=== PATIENT | female | born 1975 | race Caucasian/White ===

== ENCOUNTER 2016-04-16 11:46 | Emergency (ER) | payer BC ==
[~2016-04-16] VITALS: Ht 162.6 cm; Wt 73.0 kg
[~2016-04-16 11:46] MED LIST: IBUP-232 PO; IBUP800 PO; PROM25SU8 PO; Z.0.NO CURRENT MEDS
[2016-04-16 11:52] VITALS: BP 130/79; PULSE 114; RESP 14; TEMP 98.9; O2SAT 98
--- NOTE | 2016-04-16 13:10 | PD ---
HPI Chief Complaint: Injury Time Seen by Provider: 13:04 Travel History International Travel<30 days: No Contact w/Intl Traveler<30days: No Traveled to known affect area: No History of Present Illness HPI Patient is a 40-year-old female presenting with crush injury to the left great toe. This occurred approximately one hour prior to arrival. There was a 15 pound kettle Banuelos on a shelf approximately 2 to 2.5 Feet off the ground that was knocked down on the toe. She was wearing shoes. She has not been able to bear weight since. She reports swelling and paresthesias/numbness in the toe. No pain in the foot or ankle. No pain in the second through fifth toes. She is able to move the toe somewhat but is painful to do so. She denies any lacerations or bleeding. She denies current . [facility] Past Medical History Medical History: Denies Significant Hx Tetanus Vaccination: > 5 Years Influenza Vaccination: No ?: Not LMP: UTERINE ABLATION Past Surgical History Section: Yes (X's 2) Other Surgery: Yes (Tummy tuck, breast lift, cervical ablation ) Social History Alcohol Use: Yes (Rarely) Tobacco Use: Yes Substance Use: No Allergies-Medications (Allergen,Severity, Reaction): Coded Allergies: No Known Allergies (Verified , 04/16/16) Reported Meds & Prescriptions Reported Meds & Active Scripts Active No Active Prescriptions or Reported Medications Review of Systems Cardiovascular: No: Claudication Musculoskeletal: Positive: Other (see the history of present illness) Skin: No Other (no laceration) Neurologic: Positive: Paresthesia, Sensory Disturbance (numbness of the distal tip of left great toe), No: Weakness, Focal Abnormalities Physical Exam Narrative GENERAL: Well-developed and well-nourished adult female in no acute distress. SKIN: Warm and dry. Good turgor without tenting. HEAD: Normocephalic and atraumatic. CARDIOVASCULAR: Regular rate and rhythm without murmurs, rubs, clicks or gallops. Dorsalis pedis and posterior tibial pulses 2+ bilaterally. Capillary refill less than 2 seconds of all toes of left foot. No pedal edema. RESPIRATORY: Clear to auscultation bilaterally with symmetrical rise and fall, no distress or use of accessory muscles. MUSCULOSKELETAL: Edema to the left great toe distally with ecchymosis. Subungual hematoma approximately two thirds of the nail on the medial side. Was not loose or bleeding. Patient can flex and extend the left great toe. No pain upon palpation of the other digits of the foot, palpation of the metatarsal and cuboid bones or ankle on the left. Patient freely moving all four extremities spontaneously. Extremities without clubbing or cyanosis. No obvious deformities. NEUROLOGIC: CN II-XII grossly intact. Awake and alert. Strength 5/5 bilateral flexion, extension of the left great toe. Sensation intact to the distal, medial and lateral aspects of the left great toe. Normal speech. PSYCHIATRIC: Appropriate mood and affect; insight and judgment normal. Data Data Last Documented VS Vital Signs Date Time Temp Pulse Resp B/P Pulse Ox O2 Delivery O2 Flow Rate FiO2 04/16/16 11:52 98.9 114 14 130/79 98 Orders Ketorolac Inj (Toradol Inj) (04/16/16 13:15) Toe (Min 2vws) (04/16/16 13:03) Ice/Cold Pack (04/16/16 13:03) Crutches (04/16/16 13:39) Splint Or Brace Apply/Monitor (04/16/16 13:39) Tetanus/Diphtheria Tox Adult (Tetanus/Di (04/16/16 13:45) MDM Medical Decision Making Medical Screen Exam Complete: Yes Emergency Medical Condition: Yes Differential Diagnosis Toe fracture versus subungual hematoma versus toe contusion versus toe dislocation Narrative Course Patient's a 40-year-old female presenting shortly after dropping a 15 pound kettle banuelos onto the left great toe. There is swelling and subcutaneous hematoma present. She is neurovascular intact and can flex and extend the toe although is somewhat limited by pain. Patient was given Toradol and ice and ordered x-ray which shows a minimally displaced comminuted fracture of the distal phalanx. Drain subungual hematoma per attached procedure narrative. Patient's tetanus vaccine update today. Stanley tape the toe placed in a postop shoe and given crutches and a prescription for ibuprofen. Recommended follow- up with podiatry on Monday.See discharge paperwork for further instructions. The plan was discussed with the patient who acknowledged their understanding and agreement. Reinforced the follow-up with primary care is critically important. Patient instructed on emergent conditions that should prompt return to ED. Procedures Procedure Narrative Left great toe nail subungual hematoma evacuation Applied alcohol swabs to the left great toenail. Using cautery device placed 2 small holes in the nail dorsally and medially. Small amount of blood was evacuated. The patient tolerated the procedure well and there was no complications. Sterile dressing was applied. Diagnosis Primary Impression: Fracture of left great toe Qualified Code: S92.425A - Closed nondisplaced fracture of distal phalanx of left great toe, initial encounter Additional Impression: Subungual hematoma of foot Qualified Code: S90.222A - Subungual hematoma of foot, left, initial encounter Referrals: Waldo Garay DPM Patient Instructions: General Instructions, Subungual Hematoma (ED), Toe Fracture (ED) Additional Instructions: Take medications as prescribed Apply ice every 1 to 2 hours as needed for pain Keep toes stanley taped and postop shoe on at all times. Do NOT remove until cleared. Avoid weightbearing Use crutches as needed Avoid maneuvers that aggravate pain Elevate when at rest Follow-up with service department manager on Monday Return to the ED for any acute worsening of symptoms Med/Other Pt SpecificInfo: Prescription(s) given Scripts Ibuprofen 800 Mg [id number] Mg PO Q8H #15 TAB Prov:Cassandra Monson MD 04/16/16 Disposition: 01 DISCHARGE HOME Condition: Stable Danny Flood III Apr 16, 2016 13:10
[2016-04-16] MEDS ORDERED: KETOROLAC TROMETHAMINE 60 MG/2 ML (IM) VIAL IM ONE (13:15)
--- NOTE | 2016-04-16 13:30 | RADHPO ---
EXAM DATE/TIME: 04/16/2016 13:13 [facility] COMPARISON: No previous studies available for comparison. INDICATIONS : Left foot first digit crush injury. Patient states she dropped a 15lb weight on her toe. MEDICAL HISTORY : None. SURGICAL HISTORY : None. ENCOUNTER: Initial ACUITY: 1 day PAIN SCORE: 10/10 LOCATION: Left foot, first digit. FINDINGS: Examination of the first digit of the left foot demonstrates fracture of the distal phalanx great toe with comminution. Soft tissue swelling. CONCLUSION: Fracture distal phalanx great toe. Orlin Johansen MD on April 16, 2016 at 13:28 Board Certified Radiologist. This report was verified electronically.
[2016-04-16] MEDS ORDERED: TETANUS/DIPHTHERIA TOXOID ADULT 0.5 ML VIAL IM ONE (13:45)
[2016-04-16] MEDS ORDERED: IBUP800T23 PO (13:48)
== END 2016-04-16 14:08 | disposition home or self-care (01) ==
LOC: PHEFT 11:46
DX: S92.422A Displaced fracture of distal phalanx of left great toe, initial encounter for closed fracture (principal); S90.212A Contusion of left great toe with damage to nail, initial encounter; Z23 Encounter for immunization; Z72.0 Tobacco use; W20.8XXA Other cause of strike by thrown, projected or falling object, initial encounter
CPT/HCPCS: 11740; 73660; 90471; 90714; 96372; 99283; E0113; J1885; L3260